=== PATIENT | male | born 1935 | race Caucasian/White ===

== ENCOUNTER 2018-10-16 07:26 | Inpatient (IN) | payer BC, MEDICARE ==
[~2018-10-16 07:26] MED LIST: ETOMIDATE 20 MG INJ; SUCCINYLCHOLINE CHLORIDE 100 MG/5 ML SYG IV
[2018-10-16] MEDS ORDERED: MIDAZOLAM (DRIP) 50 mg/50 mL 50 ML IV (07:48)
[2018-10-16 07:59] LABS: ADD MAN DIFF? NO
[2018-10-16 08:00] LABS: ABNORMAL IP MESSAGE 1; BASOPHIL # 0.1 10^3/ul (0.0-0.1); BASOPHILS % 0.4 % (0.0-2.0); EOSINOPHILS # 0.1 10^3/ul (0.0-0.5); EOSINOPHILS % 0.4 % (0.0-7.0); HEMATOCRIT 33.9 % (42.0-52.0); HEMOGLOBIN 10.1 g/dl (14.0-18.0); LYMPHOCYTES % 26.5 % (15.0-51.0); MEAN CORPUSCULAR HEMOGLOBIN 27.4 pg (29.0-33.0); MEAN CORPUSCULAR HGB CONC 29.8 g/dl (32.0-37.0); MEAN CORPUSCULAR VOLUME 91.9 fl (82.0-101.0); MEAN PLATELET VOLUME 9.3 fl (7.4-10.4); MONOCYTE # 0.7 10^3/ul (0.3-0.9); MONOCYTES % 2.9 % (0.0-11.0); NEUTROPHIL # 15.7 10^3/ul (1.6-7.5); NEUTROPHILS % 68.8 % (39.0-77.0); PLATELET COUNT 558 10^3/UL (140-415); POSITIVE DIFF @See below; RED BLOOD COUNT 3.69 10^6/ul (4.70-6.10); RED CELL DISTRIBUTION WIDTH 19.6 % (11.5-14.5)
[2018-10-16 08:00] LABS: WHITE BLOOD COUNT 22.8 10^3/ul (4.8-10.8)
[2018-10-16] MEDS: NORepinephrine 8MG/250 ML (PMX 250 ML IV ×3 (08:03→14:50)
[2018-10-16 08:12] LABS: INR 2.39; PROTIME 26.1 Sec (11.9-14.9)
[2018-10-16 08:13] LABS: PARTIAL THROMBOPLASTIN TIME 41.9 Sec (23.0-35.0)
[2018-10-16 08:16] LABS: ALANINE AMINOTRANSFERASE 33 IU/L (13-69); ALBUMIN 2.6 g/dl (3.3-4.9); ALKALINE PHOSPHATASE 138 IU/L (42-121); ANION GAP 11 (5-13); ASPARTATE AMINO TRANSFERASE 33 IU/L (15-46); BILIRUBIN,INDIRECT 0.7 mg/dl (0-1.1); BILIRUBIN,TOTAL 0.7 mg/dl (0.2-1.3); BLOOD UREA NITROGEN 29 mg/dl (7-20); CALCIUM 10.3 mg/dl (8.4-10.2); CARBON DIOXIDE 22 mmol/L (21-31); CHLORIDE 102 mmol/L (97-110); CREATININE 1.15 mg/dl (0.61-1.24); GLUCOSE 173 mg/dl (70-220); LIPASE 276 U/L (23-300); POTASSIUM 5.6 mmol/L (3.5-5.1); SODIUM 135 mmol/L (135-144); TOTAL PROTEIN 6.3 g/dl (6.1-8.1)
[2018-10-16] MEDS: SODIUM CHLORIDE 0.9% 1L BAG IV* (08:16)
[2018-10-16] MEDS: SUCCINYLCHOLINE CHLORIDE 100 MG/5 ML SYG IV (08:19)
[2018-10-16] MEDS: ETOMIDATE 20 MG INJ IV (08:19)
[2018-10-16] MEDS: FENTAnyl (DRIP) 1000 mcg/100mL 100 ML IV (08:22)
[2018-10-16 08:26] LABS: TROPONIN-I < 0.012 ng/ml (0.000-0.120)
[2018-10-16] MEDS ORDERED: MIDAZOLAM 1 MG/ML 2 ML INJ (08:27)
[2018-10-16] MEDS ORDERED: FENTAnyl 50 MCG/ML VIAL (08:27)
[2018-10-16] MEDS: FENTAnyl 50 MCG/ML VIAL IV (08:36)
[2018-10-16] MEDS: MIDAZOLAM 1 MG/ML 2 ML INJ IV (08:36)
[2018-10-16 08:46] LABS: AADO2 Arterial 597.1 mmHg (7.0-24.0); Arterial Base Excess -10.2 mmol/L (-3.0-3); Arterial Blood Gas Oxygen Sat 86.8 mmHG (95.0-100.0); Arterial COHb 0.3 % (0.0-3.0); Arterial Fraction of Oxyhgb 86.2 % (93.0-99.0); Arterial HCO3 17.4 mmol/L (22.0-26.0); Arterial MetHb 0.4 % (0.0-1.5); Arterial pCO2 45.9 mmhg (35-45); MODE VENT - AC; Site Right Brachial
[2018-10-16] MEDS: CLINDAMYCIN 900 MG/D5W (PMX) 50 ML IVPB (08:49)
[2018-10-16] MEDS: VANCOMYCIN 1 GM (PMX) 250 ML IVPB (08:57)
[2018-10-16] MEDS: CEFEPIME 2GM/50 ML (PMX) 50 ML IVPB ×2 (08:57→22:55)
[2018-10-16] MEDS: MAGNESIUM SULFATE 2 GM/50 ML 50 ML IVPB (08:57)
[2018-10-16] MEDS: ACETAMINOPHEN 650 MG SUPP PR (08:58)
[2018-10-16] MEDS: DILTIAZEM 25 MG INJ IV (08:59)
[2018-10-16] MEDS: MIDAZOLAM (DRIP) 50 mg/50 mL 50 ML IV ×2 (09:08→20:29)
[2018-10-16] MEDS ORDERED: HYDROCODONE/APAP (5/325) TAB PO (09:30)
[2018-10-16] MEDS ORDERED: hydrALAzine 20 MG INJ IV (09:30)
[2018-10-16] MEDS ORDERED: ONDANSETRON 4 MG INJ IV (09:30)
[2018-10-16] MEDS ORDERED: LORAZEPAM 2 MG INJ IV (09:30)
[2018-10-16] MEDS ORDERED: VANCOMYCIN IV PER PHARMACY XX (09:30)
[2018-10-16] MEDS ORDERED: NACL 0.9% 3 ML SYG IV (09:30)
[2018-10-16] MEDS ORDERED: morphine 2 MG INJ IV (09:30)
[2018-10-16] MEDS ORDERED: NITROGLYCERIN (SL) 0.4 MG TAB SL (09:30)
[2018-10-16] MEDS ORDERED: MAGNESIUM HYDROXIDE 30ML CUP PO (09:30)
[2018-10-16] MEDS ORDERED: DOCUSATE SODIUM 100 MG CAP PO (09:30)
[2018-10-16 09:32] LABS: PLATELET COUNT 483 10^3/UL (140-415)
[2018-10-16] MEDS: DILTIAZEM-D5W 125MG/125ML DRIP 125 ML IV (09:55)
[2018-10-16] MEDS: SOD CHLORIDE 0.9% 1,000 ML IV ×4 (09:56→23:01)
[2018-10-16] MEDS ORDERED: DILTIAZEM-D5W 125MG/125ML DRIP 125 ML IV (10:00)
[2018-10-16] MEDS: HYDROCORTISONE 100 MG INJ IV (10:01)
[2018-10-16 10:20] LABS: INR 2.48; PARTIAL THROMBOPLASTIN TIME 41.2 Sec (23.0-35.0); PROTIME 26.9 Sec (11.9-14.9); PT RATIO 2.1
[2018-10-16 10:25] LABS: THROMBIN TIME 15.7 SEC (13.8-19.1)
[2018-10-16 10:37] LABS: HEMOGLOBIN A1C 5.2 % (0-5.9)
[2018-10-16] MEDS: VASOPRESSIN 60 UNIT in SOD CHLORIDE 0.9% 57 ML IV (10:58)
[2018-10-16] MEDS: DOPamine-D5W 1.6 MG/ML 250 ML IV ×4 (10:58→22:18)
[2018-10-16 11:00] LABS: D-DIMER 9039.63 ng/ml (<460)
[2018-10-16 11:00] LABS: TROPONIN-I < 0.012 ng/ml (0.000-0.120)
[2018-10-16 11:01] LABS: FIBRIN SPLIT PRODUCT <10 ug/ml (<10)
[2018-10-16] MEDS: VANCOMYCIN 500 MG (PMX) 100 ML IVPB (11:11)
[2018-10-16 11:21] LABS: FREE T4 (FREE THYROXINE) 1.66 ng/dl (0.85-1.93)
[2018-10-16 12:29] LABS: AADO2 Arterial 596.7 mmHg (7.0-24.0); Arterial Base Excess -11.4 mmol/L (-3.0-3); Arterial Blood Gas Oxygen Sat 82.8 mmHG (95.0-100.0); Arterial COHb 0.3 % (0.0-3.0); Arterial Fraction of Oxyhgb 82.3 % (93.0-99.0); Arterial HCO3 17.5 mmol/L (22.0-26.0); Arterial MetHb 0.3 % (0.0-1.5); Arterial pCO2 53.2 mmhg (35-45); MODE VENT - AC; Site Right Brachial
[2018-10-16 13:51] LABS: ADD UMIC YES; UR ASCORBIC ACID 40 mg/dL (NEGATIVE); UR BACTERIA FEW /HPF (NONE SEEN); UR BILIRUBIN (Dip) NEGATIVE (NEGATIVE); UR BLOOD (Dip) 3+ mg/dL (NEGATIVE); UR CLARITY CLOUDY (CLEAR); UR COLOR AMBER (YELLOW); UR GLUCOSE (Dip) NEGATIVE (NEGATIVE); UR KETONES (Dip) NEGATIVE (NEGATIVE); UR LEUKOCYTE ESTERASE (Dip) 2+ Leu/ul (NEGATIVE); UR MUCUS MODERATE /HPF (NONE SEEN); UR NITRITE (Dip) POSITIVE (NEGATIVE); UR RBC > 182 /HPF (0-5); UR SPECIFIC GRAVITY (Dip) 1.015 (1.003-1.030); UR TOTAL PROTEIN (Dip) 1+ mg/dl (NEGATIVE); UR UROBILINOGEN (Dip) 1+ mg/dL (NEGATIVE); UR WBC 111 /HPF (0-5)
[2018-10-16 16:18] LABS: HEMATOCRIT 32.2 % (42.0-52.0); HEMOGLOBIN 9.5 g/dl (14.0-18.0)
[2018-10-16 16:47] LABS: TROPONIN-I < 0.012 ng/ml (0.000-0.120)
[2018-10-16] MEDS: NORepinephrine 32 MG in DEXTROSE 5% 218 ML IV ×3 (19:57→23:51)
[2018-10-16] MEDS ORDERED: PENDING SANTYL ORDER FOR WOUND CARE XX (22:00)
[2018-10-16] MEDS: ALBUTEROL/IPRATROPIUM (NEB) 3 ML AMP HHN (22:21)
[2018-10-16] MEDS: FAMOTIDINE 20 MG INJ IV (22:26)
[2018-10-16 22:35] LABS: AADO2 Arterial 602.6 mmHg (7.0-24.0); Allen Test ACCEPTAB; Arterial Base Excess -15.6 mmol/L (-3.0-3); Arterial Blood Gas Oxygen Sat 90.8 mmHG (95.0-100.0); Arterial COHb 0.3 % (0.0-3.0); Arterial Fraction of Oxyhgb 90.3 % (93.0-99.0); Arterial HCO3 12.5 mmol/L (22.0-26.0); Arterial MetHb 0.3 % (0.0-1.5); Arterial pCO2 37.8 mmhg (35-45); MODE VENT - AC; Site Right Radial
[2018-10-16] MEDS ORDERED: NA BICARBONATE 8.4% 50 ML SYG (22:45)
[2018-10-16] MEDS: NA BICARBONATE 8.4% 50 ML SYG IV (23:00)
[2018-10-17] MEDS: NA BICARBONATE 8.4% 50 ML SYG IV ×2 (00:42→10:07)
[2018-10-17] MEDS: SODIUM BICARBONATE (IV ADD) 100 MEQ in DEXTROSE 5% 1,000 ML IV ×2 (01:14→10:24)
[2018-10-17] MEDS: NORepinephrine 32 MG in DEXTROSE 5% 218 ML IV ×2 (02:27→22:51)
[2018-10-17] MEDS: VASOPRESSIN 60 UNIT in DEXTROSE 5% 57 ML IV ×2 (04:25→14:30)
[2018-10-17 05:31] LABS: WHITE BLOOD COUNT 38.4 10^3/ul (4.8-10.8)
[2018-10-17 05:31] LABS: ABNORMAL IP MESSAGE 1; HEMATOCRIT 30.3 % (42.0-52.0); MEAN CORPUSCULAR HEMOGLOBIN 27.5 pg (29.0-33.0); MEAN CORPUSCULAR HGB CONC 29.7 g/dl (32.0-37.0); MEAN CORPUSCULAR VOLUME 92.7 fl (82.0-101.0); MEAN PLATELET VOLUME 9.7 fl (7.4-10.4); NUCLEATED RED BLOOD CELLS% 0.1 /100WBC (0.0-0.0); PLATELET COUNT 472 10^3/UL (140-415); POSITIVE DIFF @See below; RED BLOOD COUNT 3.27 10^6/ul (4.70-6.10); RED CELL DISTRIBUTION WIDTH 19.1 % (11.5-14.5)
[2018-10-17] MEDS: SOD CHLORIDE 0.9% 1,000 ML IV ×3 (05:31→08:53)
[2018-10-17] MEDS: DOPamine-D5W 1.6 MG/ML 250 ML IV ×3 (05:45→15:36)
[2018-10-17 05:47] LABS: ADD MAN DIFF? YES
[2018-10-17 05:53] LABS: ANION GAP 15 (5-13); BLOOD UREA NITROGEN 36 mg/dl (7-20); CARBON DIOXIDE 19 mmol/L (21-31); CHLORIDE 102 mmol/L (97-110); CREATININE 2.02 mg/dl (0.61-1.24); GLUCOSE 140 mg/dl (70-220); PHOSPHORUS 5.6 mg/dl (2.5-4.9); POTASSIUM 5.3 mmol/L (3.5-5.1); SODIUM 136 mmol/L (135-144)
[2018-10-17 06:00] LABS: HDL CHOLESTEROL 12 mg/dl (31-75); TRIGLYCERIDES 64 mg/dl (0-149)
[2018-10-17 06:21] LABS: CHOLESTEROL < 50 mg/dl (100-200)
[2018-10-17] MEDS: DILTIAZEM-D5W 125MG/125ML DRIP 125 ML IV (06:36)
[2018-10-17 07:12] LABS: HEMOGLOBIN A1C 5.2 % (0-5.9)
[2018-10-17] MEDS: FAMOTIDINE 20 MG INJ IV (08:53)
[2018-10-17 09:21] LABS: ANISOCYTOSIS 1+ (0-0); BAND NEUTROPHILS #M 22.6 10^3/ul (0.0-0.6); BAND NEUTROPHILS % (M) 59 % (0-4); BURR CELLS 1+ (0-0); GIANT THROMBO% (M) 1 % (0-0); LYMPHOCYTES #M 1.5 10^3/ul (0.8-2.9); LYMPHOCYTES % (M) 4 % (15-51); METAMYELOCYTES #M 0.3 10^3/ul (0.0-0.0); METAMYELOCYTES %M 1 % (0-0); MICROCYTOSIS 1+ (0-0); MONOCYTE #M 1.1 10^3/ul (0.3-0.9); MONOCYTES % (M) 3 % (0-11); MYELOCYTES #M 0.7 10^3/ul (0.0-0.0); MYELOCYTES % (M) 2 % (0-0); OVALOCYTES 1+ (0-0); PLATELET ESTIMATE NORMAL; POIKILOCYTOSIS 2+ (0-0); POLYCHROMASIA 3+ (0-0); SCHISTOCYTES 1+ (0-0); SEG NEUT #M 20.6 10^3/ul (1.6-7.5); SEGMENTED NEUTROPHILS (M) % 31 % (39-77); SMUDGE%M 2 % (0-0)
[2018-10-17] MEDS ORDERED: DILTIAZEM-D5W 125MG/125ML DRIP 125 ML IV (09:36)
[2018-10-17] MEDS: PHYTONADIONE 10 MG/ML INJ IV (10:07)
[2018-10-17] MEDS: HYDROCORTISONE 100 MG INJ IV ×2 (10:07→17:34)
[2018-10-17] MEDS: MIDAZOLAM (DRIP) 50 mg/50 mL 50 ML IV ×2 (10:15→17:43)
[2018-10-17] MEDS: CEFEPIME 2GM/50 ML (PMX) 50 ML IVPB (10:24)
[2018-10-17] MEDS: VANCOMYCIN HCL 1.25 GM in SOD CHLORIDE 0.9% 250 ML IVPB (12:15)
[2018-10-17] MEDS ORDERED: SODIUM BICARBONATE (IV ADD) 100 MEQ in SOD CHLORIDE 0.45% 1,000 ML IV (14:00)
[2018-10-17 14:37] LABS: AADO2 Arterial 500.7 mmHg (7.0-24.0); Allen Test ACCEPTAB; Arterial Base Excess -5.8 mmol/L (-3.0-3); Arterial COHb 0.3 % (0.0-3.0); Arterial Fraction of Oxyhgb 97.4 % (93.0-99.0); Arterial HCO3 18.4 mmol/L (22.0-26.0); Arterial MetHb 0.3 % (0.0-1.5); Arterial pCO2 31.4 mmhg (35-45); MODE VENT - AC; Site Right Radial
[2018-10-17 15:11] LABS: ANION GAP 15 (5-13); BLOOD UREA NITROGEN 43 mg/dl (7-20); CALCIUM 8.5 mg/dl (8.4-10.2); CARBON DIOXIDE 21 mmol/L (21-31); CHLORIDE 98 mmol/L (97-110); GLUCOSE 165 mg/dl (70-220); SODIUM 134 mmol/L (135-144)
[2018-10-17] MEDS: SODIUM BICARBONATE (IV ADD) 100 MEQ in SOD CHLORIDE 0.45% 1,000 ML IV (15:56)
[2018-10-17 16:41] LABS: ADD UMIC YES; UR ASCORBIC ACID NEGATIVE (NEGATIVE); UR BACTERIA FEW /HPF (NONE SEEN); UR BILIRUBIN (Dip) NEGATIVE (NEGATIVE); UR BLOOD (Dip) 2+ mg/dL (NEGATIVE); UR CLARITY CLOUDY (CLEAR); UR COLOR AMBER (YELLOW); UR GLUCOSE (Dip) NEGATIVE (NEGATIVE); UR KETONES (Dip) TRACE mg/dL (NEGATIVE); UR LEUKOCYTE ESTERASE (Dip) TRACE Leu/ul (NEGATIVE); UR NITRITE (Dip) NEGATIVE (NEGATIVE); UR RBC 20 /HPF (0-5); UR SPECIFIC GRAVITY (Dip) 1.016 (1.003-1.030); UR TOTAL PROTEIN (Dip) 1+ mg/dl (NEGATIVE); UR UROBILINOGEN (Dip) NEGATIVE (NEGATIVE); UR WBC 17 /HPF (0-5)
[2018-10-17 17:04] LABS: SODIUM,URINE RANDOM 59 mmol/L (30-90)
[2018-10-17 17:04] LABS: CREATININE,URINE RANDOM 60.72 mg/dl (20-370)
[2018-10-17] MEDS: NA POLYST SULFON 15 GM/60 ML BTL GTB ×2 (17:29→20:30)
[2018-10-17] MEDS: PANTOPRAZOLE 40 MG INJ IV (17:34)
[2018-10-17] MEDS: MEROPENEM 500MG/50 ML (PMX) 50 ML IVPB (22:02)
[2018-10-18] MEDS: HYDROCORTISONE 100 MG INJ IV ×3 (01:52→17:11)
[2018-10-18] MEDS: MIDAZOLAM (DRIP) 50 mg/50 mL 50 ML IV ×2 (01:52→14:15)
[2018-10-18] MEDS: SODIUM BICARBONATE (IV ADD) 100 MEQ in SOD CHLORIDE 0.45% 1,000 ML IV ×2 (01:52→12:31)
[2018-10-18] MEDS: ACETAMINOPHEN 325 MG TAB PO (01:53)
[2018-10-18] MEDS: VASOPRESSIN 60 UNIT in DEXTROSE 5% 57 ML IV ×2 (04:35→20:02)
[2018-10-18] MEDS: FENTAnyl (DRIP) 1000 mcg/100mL 100 ML IV ×2 (04:37→20:45)
[2018-10-18 04:53] LABS: ABNORMAL IP MESSAGE 1; HEMATOCRIT 27.1 % (42.0-52.0); HEMOGLOBIN 8.3 g/dl (14.0-18.0); MEAN CORPUSCULAR HEMOGLOBIN 27.2 pg (29.0-33.0); MEAN CORPUSCULAR HGB CONC 30.6 g/dl (32.0-37.0); MEAN CORPUSCULAR VOLUME 88.9 fl (82.0-101.0); MEAN PLATELET VOLUME 9.7 fl (7.4-10.4); NUCLEATED RED BLOOD CELLS% 0.4 /100WBC (0.0-0.0); PLATELET COUNT 437 10^3/UL (140-415); POSITIVE DIFF @See below; RED BLOOD COUNT 3.05 10^6/ul (4.70-6.10); RED CELL DISTRIBUTION WIDTH 19.6 % (11.5-14.5)
[2018-10-18 04:53] LABS: WHITE BLOOD COUNT 31.1 10^3/ul (4.8-10.8)
[2018-10-18 05:06] LABS: ADD MAN DIFF? YES
[2018-10-18 05:16] LABS: INR 3.22; PT RATIO 2.6
[2018-10-18 05:17] LABS: PARTIAL THROMBOPLASTIN TIME 42.7 Sec (23.0-35.0)
[2018-10-18 05:22] LABS: MAGNESIUM 2.7 mg/dl (1.7-2.5)
[2018-10-18 05:22] LABS: ANION GAP 16 (5-13); BLOOD UREA NITROGEN 54 mg/dl (7-20); CALCIUM 8.1 mg/dl (8.4-10.2); CARBON DIOXIDE 21 mmol/L (21-31); CHLORIDE 98 mmol/L (97-110); CREATININE 2.59 mg/dl (0.61-1.24); GLUCOSE 112 mg/dl (70-220); POTASSIUM 5.5 mmol/L (3.5-5.1); SODIUM 135 mmol/L (135-144)
[2018-10-18 05:24] LABS: PHOSPHORUS 5.5 mg/dl (2.5-4.9)
[2018-10-18] MEDS: PANTOPRAZOLE 40 MG INJ IV ×2 (05:42→17:10)
[2018-10-18 06:21] LABS: PROTIME 32.8 Sec (11.9-14.9)
[2018-10-18] MEDS ORDERED: ALBUMIN HUMAN 25% 100 ML (06:54)
[2018-10-18] MEDS: ALBUMIN HUMAN 25% 100 ML IV ×3 (07:04→23:10)
[2018-10-18] MEDS: MEROPENEM 500MG/50 ML (PMX) 50 ML IVPB ×2 (08:40→20:45)
[2018-10-18] MEDS: PHYTONADIONE 10 MG/ML INJ IV (08:40)
[2018-10-18 09:46] LABS: ANISOCYTOSIS 1+ (0-0); BAND NEUTROPHILS #M 15.5 10^3/ul (0.0-0.6); BAND NEUTROPHILS % (M) 50 % (0-4); BASOPHIL #M 0.3 10^3/ul (0.0-0.0); BASOPHILS % (M) 1 % (0-2); BURR CELLS 2+ (0-0); ERYTHROBLAST% (NRBC) (M) 2 % (0-0); GIANT THROMBO% (M) 1 % (0-0); LYMPHOCYTES #M 0.9 10^3/ul (0.8-2.9); LYMPHOCYTES % (M) 3 % (15-51); PLATELET ESTIMATE NORMAL; POIKILOCYTOSIS 1+ (0-0); POLYCHROMASIA 1+ (0-0); REACTIVE LYMPHOCYTES #M 0.6 10^3/ul (0.0-0.0); REACTIVE LYMPHOCYTES% (M) 2 % (0-0); SEG NEUT #M 18.5 10^3/ul (1.6-7.5); SEGMENTED NEUTROPHILS (M) % 44 % (39-77); SMUDGE%M 6 % (0-0)
[2018-10-18 10:40] LABS: AADO2 Arterial 554.7 mmHg (7.0-24.0); Allen Test ACCEPTAB; Arterial Base Excess -6.4 mmol/L (-3.0-3); Arterial Blood Gas Oxygen Sat 74.4 mmHG (95.0-100.0); Arterial COHb 0.3 % (0.0-3.0); Arterial Fraction of Oxyhgb 73.8 % (93.0-99.0); Arterial HCO3 20.2 mmol/L (22.0-26.0); Arterial MetHb 0.5 % (0.0-1.5); Arterial pCO2 45.4 mmhg (35-45); MODE VENT - AC; Site Right Radial
[2018-10-18 12:13] LABS: VANCOMYCIN,TROUGH 16.3 ug/ml (10.0-20.0)
[2018-10-18] MEDS: VANCOMYCIN HCL 1.25 GM in SOD CHLORIDE 0.9% 250 ML IVPB (12:33)
[2018-10-18] MEDS: NORepinephrine 32 MG in DEXTROSE 5% 218 ML IV (18:48)
[2018-10-18 23:13] LABS: AADO2 Arterial 358.9 mmHg (7.0-24.0); Allen Test ACCEPTAB; Arterial Base Excess 0.1 mmol/L (-3.0-3); Arterial COHb 0.3 % (0.0-3.0); Arterial Fraction of Oxyhgb 97.1 % (93.0-99.0); Arterial HCO3 25.3 mmol/L (22.0-26.0); Arterial MetHb 0.6 % (0.0-1.5); MODE VENT - AC; Site Left Radial
[2018-10-19] MEDS: SODIUM BICARBONATE (IV ADD) 100 MEQ in SOD CHLORIDE 0.45% 1,000 ML IV (00:02)
[2018-10-19] MEDS: MIDAZOLAM (DRIP) 50 mg/50 mL 50 ML IV ×2 (00:46→20:30)
[2018-10-19] MEDS: VASOPRESSIN 60 UNIT in DEXTROSE 5% 57 ML IV ×3 (02:30→19:28)
[2018-10-19] MEDS: HYDROCORTISONE 100 MG INJ IV ×3 (02:59→15:47)
[2018-10-19] MEDS: ACETAMINOPHEN 325 MG TAB PO (04:21)
[2018-10-19] MEDS: PANTOPRAZOLE 40 MG INJ IV ×2 (05:15→15:46)
[2018-10-19 05:37] LABS: ABNORMAL IP MESSAGE 1; HEMATOCRIT 23.7 % (42.0-52.0); HEMOGLOBIN 7.2 g/dl (14.0-18.0); MEAN CORPUSCULAR HEMOGLOBIN 27.3 pg (29.0-33.0); MEAN CORPUSCULAR HGB CONC 30.4 g/dl (32.0-37.0); MEAN CORPUSCULAR VOLUME 89.8 fl (82.0-101.0); MEAN PLATELET VOLUME 9.8 fl (7.4-10.4); NUCLEATED RED BLOOD CELLS% 0.3 /100WBC (0.0-0.0); PLATELET COUNT 371 10^3/UL (140-415); POSITIVE DIFF @See below; RED BLOOD COUNT 2.64 10^6/ul (4.70-6.10); RED CELL DISTRIBUTION WIDTH 18.7 % (11.5-14.5)
[2018-10-19 05:37] LABS: WHITE BLOOD COUNT 27.3 10^3/ul (4.8-10.8)
[2018-10-19 05:45] LABS: ADD MAN DIFF? YES
[2018-10-19 05:56] LABS: INR 2.99; PROTIME 31.1 Sec (11.9-14.9); PT RATIO 2.4
[2018-10-19 05:57] LABS: PARTIAL THROMBOPLASTIN TIME 38.7 Sec (23.0-35.0)
[2018-10-19 06:09] LABS: MAGNESIUM 3.4 mg/dl (1.7-2.5)
[2018-10-19 06:09] LABS: ANION GAP 11 (5-13); BLOOD UREA NITROGEN 75 mg/dl (7-20); CALCIUM 7.1 mg/dl (8.4-10.2); CARBON DIOXIDE 25 mmol/L (21-31); CHLORIDE 99 mmol/L (97-110); GLUCOSE 125 mg/dl (70-220); POTASSIUM 5.4 mmol/L (3.5-5.1); SODIUM 135 mmol/L (135-144)
[2018-10-19 06:25] LABS: CREATININE 2.96 mg/dl (0.61-1.24)
[2018-10-19 06:26] LABS: PHOSPHORUS 5.6 mg/dl (2.5-4.9)
[2018-10-19 06:48] LABS: ANISOCYTOSIS 2+ (0-0); BAND NEUTROPHILS #M 1.9 10^3/ul (0.0-0.6); BAND NEUTROPHILS % (M) 7 % (0-4); HYPOCHROMASIA 2+ (0-0); LYMPHOCYTES % (M) 4 % (15-51); MICROCYTOSIS 1+ (0-0); MONOCYTE #M 0.2 10^3/ul (0.3-0.9); MONOCYTES % (M) 1 % (0-11); PLATELET ESTIMATE NORMAL; POLYCHROMASIA 1+ (0-0); SEG NEUT #M 24.5 10^3/ul (1.6-7.5); SEGMENTED NEUTROPHILS (M) % 88 % (39-77)
[2018-10-19] MEDS: SOD CHLORIDE 0.9% 1,000 ML IV (08:00)
[2018-10-19] MEDS: PHYTONADIONE 10 MG/ML INJ IV (08:00)
[2018-10-19] MEDS: MEROPENEM 500MG/50 ML (PMX) 50 ML IVPB (09:37)
[2018-10-19 14:47] LABS: CREATININE, RANDOM URINE 60 mg/dL (20-320); MICROALBUMIN 17.3 mg/dL; MICROALBUMIN/CREATININE RATIO 288 (<30)
[2018-10-19] MEDS: FENTAnyl (DRIP) 1000 mcg/100mL 100 ML IV (20:05)
[2018-10-20] MEDS ORDERED: VANCOMYCIN HCL 1.25 GM in SOD CHLORIDE 0.9% 250 ML IVPB (13:00)
== END 2018-10-19 23:41 | disposition expired | DRG 871 ==
LOC: E/R 07:26 → ICU 09:09
PROC: 0BH17EZ Insertion of Endotracheal Airway into Trachea, Via Natural or Artificial Opening (ICD-10-PCS; principal; 2018-10-16)
PROC: 5A1945Z Respiratory Ventilation, 24-96 Consecutive Hours (ICD-10-PCS; 2018-10-16)
DX: A41.9 Sepsis, unspecified organism (principal); J96.01 Acute respiratory failure with hypoxia; J69.0 Pneumonitis due to inhalation of food and vomit; R65.21 Severe sepsis with septic shock; N17.0 Acute kidney failure with tubular necrosis; G93.40 Encephalopathy, unspecified; E87.2 Acidosis; K92.2 Gastrointestinal hemorrhage, unspecified; N39.0 Urinary tract infection, site not specified; D68.32 Hemorrhagic disorder due to extrinsic circulating anticoagulants; Z99.11 Dependence on respirator [ventilator] status; E87.5 Hyperkalemia; I48.2 Chronic atrial fibrillation; Z93.1 Gastrostomy status; R13.10 Dysphagia, unspecified; I69.391 Dysphagia following cerebral infarction; I73.9 Peripheral vascular disease, unspecified; K21.9 Gastro-esophageal reflux disease without esophagitis; J45.909 Unspecified asthma, uncomplicated; I10 Essential (primary) hypertension; E78.5 Hyperlipidemia, unspecified; B96.20 Unspecified Escherichia coli [E. coli] as the cause of diseases classified elsewhere; T45.525A Adverse effect of antithrombotic drugs, initial encounter; Z66 Do not resuscitate; Z96.653 Presence of artificial knee joint, bilateral; Z79.82 Long term (current) use of aspirin; Z79.02 Long term (current) use of antithrombotics/antiplatelets; Y92.129 Unspecified place in nursing home as the place of occurrence of the external cause; Z86.718 Personal history of other venous thrombosis and embolism; Z89.512 Acquired absence of left leg below knee
CPT/HCPCS: 31500; 36600; 71045; 76775; 76937; 80048; 80053; 80061; 80202; 81001; 81003; 82043; 82803; 82962; 83036; 83605; 83690; 83735; 84100; 84155; 84300; 84439; 84443; 84484; 85014; 85018; 85025; 85049; 85362; 85378; 85384; 85610; 85670; 85730; 87040; 87070; 87081; 87086; 89220; 93005; 94002; 94003; 94664; 94770; 96374; 96375; 99291-25